=== PATIENT | female | born 1945 | race Caucasian/White ===

== ENCOUNTER 2018-10-15 06:05 | Inpatient (IN) ==
[2018-10-15] MEDS ORDERED: Metoprolol Tartrate 25 MG Tablet PO ONE (06:32)
[2018-10-15] MEDS ORDERED: Chlorhexidine Gluconate 2% 1 Pack (2 Cloths) TOPICAL ONE (06:32)
[2018-10-15] MEDS ORDERED: Dextrose 5%/NaCl 0.9% Inj 1,000 ML IV.SIG SCH (06:45)
[2018-10-15] MEDS ORDERED: ceFAZolin 2 GM IV; once IV.SIG ONE (06:45)
[2018-10-15] MEDS ORDERED: Sodium Chlor 0.9% Inj 500 ML IV.SIG SCH (07:00)
[2018-10-15] MEDS ORDERED: Sugammadex Inj 200 MG/2 ML Vial IV.PUSH ONE (07:13)
--- NOTE | 2018-10-15 10:06 | P.OP ---
- Preoperative Diagnosis (1) Diverticula of colon - Postoperative Diagnosis (1) Diverticula of colon Date of procedure: 10/15/18 Procedure: Urologic procedures performed: Cystoscopy and placement of bilateral ureteral catheters Implants: Bilateral 6 Czech ureteral catheters Anesthesia: GETA Surgeon: Akbar Mendiola MD Estimated blood loss (mL): 0 Pathology: none sent Operation and Findings: Indication for urologic procedures: Consulted intraoperatively to place bilateral ureteral catheters to aid in visualization of this patient's ureters during her colorectal procedure. Urologic procedures performed: Concurrent with the colorectal surgeon Dr. Henry, I proceeded with placement of bilateral ureteral catheters as follows : Initially cystoscopic evaluation was performed utilizing the rigid cystoscope with the 30 degree lens and the 22 Czech sheath. Both right and left ureteral orifices were in correct anatomic position draining clear yellow urine. There were no bladder mucosal lesions, calculi or diverticula formation. There were no areas suspicious for fistula formation or tumor formation. I then proceeded to pass a sensor 0.035 wire up the patient's left ureter until a small amount of resistance was met. A 6 Czech open-ended ureteral catheter was then advanced over the wire 25 cm in a cephalad direction. With the catheter in place, the guidewire was withdrawn and reintroduced to a secondary side by the cystoscope. In similar fashion the contralateral side was accomplished. With both catheters in place, the wire and cystoscope were withdrawn and a 16 Czech 10 cc Pina catheter was placed. Both ureteral catheters were then anchored to the Pina and all 3 catheters placed to gravity drainage. This completes urologic surgery portion of combined procedures on this patient.
[2018-10-15] MEDS ORDERED: ceFAZolin 2 GM Premix Inj 2 GM/50 ML PIGGYBACK IV.SIG ONE (12:47)
[2018-10-15] MEDS ORDERED: Morphine Inj 30 MG/30 ML PCA.VIAL PCA PRN (13:00)
[2018-10-15] MEDS ORDERED: Naloxone Inj 0.4 MG/ML Vial IV.PUSH PRN (13:00)
[2018-10-15] MEDS ORDERED: fentaNYL Citrate Inj 100 MCG/2 ML Ampul ONE ×2 (13:28)
[2018-10-15] MEDS ORDERED: Insulin NovoLOG Aspart Correctional Sugar Inj SQ ONE (13:46)
[2018-10-15 13:51] LABS: Mean Corpuscular HGB Conc 32.7 % (32.0-36.0); Mean Corpuscular Hemoglobin 31.5 pg (27.0-34.0); Mean Corpuscular Volume 96.3 fL (80.0-100.0); Mean Platelet Volume 7.7 fL (7.0-11.0); Platelet Count 117 th/mm3 (150-450); Red Blood Count 2.07 mil/mm3 (4.00-5.30); White Blood Count 5.4 th/mm3 (4.0-11.0)
[2018-10-15 13:56] LABS: Hemoglobin 6.5 gm/dL (11.6-15.3)
[2018-10-15 13:57] LABS: Hematocrit 19.9 % (35.0-46.0)
[2018-10-15] MEDS ORDERED: Potassium Chlor 20 mEq Premix 20 MEQ/100 ML PIGGYBACK IV.SIG ONE (14:00)
[2018-10-15 14:16] LABS: Anion Gap 29 meq/L (5-15); Blood Urea Nitrogen 8 mg/dL (7-18); Carbon Dioxide 11.6 meq/L (21.0-32.0); Chloride 101 meq/L (98-107); Glomerular Filtration Rate Greater Than 89 mL/min (>89); Glucose,Random 99 mg/dL (74-106); Potassium 4.3 meq/L (3.5-5.1); Sodium 142 meq/L (136-145)
[2018-10-15 14:34] LABS: Albumin 1.3 g/dL (3.4-5.0)
[2018-10-15 14:37] LABS: Lymphocytes 4 % (9-44); Monocytes 1 % (0-8)
[2018-10-15 14:38] LABS: Platelet Morphology Normal (Normal)
[2018-10-15 14:41] LABS: Calcium-Albumin Corrected Less Than 7.2 mg/dL (8.5-10.1)
--- NOTE | 2018-10-15 14:43 | MP ---
cc: Sylvia Henry MD, Dr. DATE OF OPERATION: 10/15/2018 PREOPERATIVE DIAGNOSIS: Chronic diverticulitis. POSTOPERATIVE DIAGNOSIS: Chronic diverticulitis. PROCEDURE PERFORMED: 1. Laparoscopic/robotic, extensive lysis of adhesions. 2. Robotic low anterior resection. ANESTHESIA: General per ET tube. ESTIMATED BLOOD LOSS: 100 mL OPERATIVE INDICATIONS: The patient is a 73-year-old female who has had multiple attacks of diverticulitis over the years; 2 within the last 12 months. OPERATIVE FINDINGS: The patient had an inflamed phlegmon of the colon that was folded over and down into the pelvis. The remainder of the bowel appeared visually normal. The liver was not well visualized, but the uterus and ovaries appeared appropriate for her age. OPERATIVE COURSE: The patient was brought to the operating room, placed in the supine position. After induction of general anesthesia, the patient was placed in the lithotomy position. All bony prominences were carefully padded. The skin of the anterior abdominal wall as well as the perineal area were then prepped and draped in the usual sterile fashion. . ____ then came in and performed cystoscopy with placement of bilateral ureteral catheters; please see his operative note for details. The site was then drawn for the camera being located just to the right and above the umbilicus. A 10/12 trocar was placed at this location under direct vision using the laparoscope. CO2 insufflation was then began, and although the patient had adhesions of omentum and bowel from the anterior abdominal wall, there was nothing noted that would preclude the ____ . A site was chosen for the short 10/12 just inside the right anterior superior iliac spine. We did have to move that in slightly because of a very prominent vessel. The 10/12 trocar was placed under direct vision using the laparoscope. A #5 assist port was placed into the right costal margin equal distance from the #1 and the camera port. The patient was hydroplaned with head down and slightly to the right and the small bowel was brought up and out of the pelvis. The adhesions of the omentum to the anterior abdominal wall on the left as well as to the descending colon were then dissected free using electrocautery. Eventually had free mobility of the omentum and this was brought up and over the transverse colon. Attention was then turned to the pelvis. The sigmoid colon was retracted down to the left and the peritoneum on the right was scored. Dissection was continued in this plane. The remaining 2 ports were placed as follows: The #2 port was placed on the umbilical line in the left anterior axillary line and the #3 port was placed 2 fingerbreadths above the umbilical line in the left midclavicular line. The previously scored peritoneum on the right was then dissected free posterior to the vessels until the left ureter was clearly identified and swept away from the specimen. At this point, the peritoneum above the vessels were opened and a window was made around the vessels; however, due to the short length of the vessels, I was not able to get a stapler across the vessels. The vessels were then dissected out with electrocautery, doubly clamped proximally, singly clamped distally with Hem-o-Sarita clamps and divided. The descending colon mesentery was then carefully dissected free from the posterior peritoneum. Dissection continued down posteriorly on the rectum, down to the level of the distal rectum. Dissection then continued up around the right and left side, freeing up the remaining portion of the distal sigmoid and proximal rectum. Unfortunately, it was necessary to go below the cul-de-sac in order to get better straightening of the colon. Eventually we had full mobility of the descending colon and sigmoid colon and rectum. A sponge stick was placed into the rectum and the 29 EEA stapler was also advanced into the rectum to verify the site. The mesentery at this level was divided using a combination of electrocautery and blunt dissection and a white load of the [place] stapler was placed across the bowel, fired and removed. The stapler was again advanced to the rectal stump. There was noted to be a small dog ear, but this was cleared off so that it should come out through the middle of the staple line. Staple was fired and removed. The descending colon was then dissected free up to the level, but not around the splenic flexure and the posterior peritoneum was freed as well making sure we had adequate length to come down to the rectal stump without any unnecessary tension. All dissection beds were examined and hemostasis was obtained with electrocautery and the robot was undocked. A 12 cm transverse incision was made just above the symphysis pubis using electrocautery. Dissection was carried down to the fascia of the abdominal wall, which was divided the length of the skin incision. The medial fibers of the rectus abdominis muscle were then split and the posterior fascia was then incised to the length of the anterior fascia. A wound protector was then placed in the proximal staple end of the bowel was grasped, pulled up and out through the wound protector. A site was then confirmed for the reanastomosis and the mesentery at this level was serially divided and ligated using 0-Vicryl ties. A pursestring stapling device was placed across the bowel proximally and the distal bowel was occluded with a Fabian clamp. The bowel was amputated, was taken to a back table where it was later opened and diverticulitis only was confirmed. The anvil from the 29 EEA stapler was placed down the cut end of the bowel and the previously placed pursestring suture was then secured. This was then reduced back into the peritoneal cavity. The stapler was advanced just through the anal stump to the rectal stump without difficulty. The small dog ear was pulled up around the spike as it was advanced just above the staple line. The spike was then into the anvil and being careful that the bowel did not twist, the spike was closed, held for 30 seconds and removed, thus creating the enteroenterostomy. Both anastomotic rings appeared to be complete and the anastomosis was pink and healthy and lay in a nice orientation without tension. A small amount warm saline was placed in the pelvis and the proximal bowel was occluded with digital pressure while air was insufflated into the rectum until gentle tension was noted and the anastomosis with no sign of any leakage noted. The dissection beds dusted with powdered Surgicel to decrease any risk of oozing. The posterior fascia of the anterior abdominal wall was closed in running fashion using #1 PDS. The anterior fascia was closed in a running subcuticular fashion using 0-Vicryl. Steri-Strips were then applied over the abdominal incision and sterile dressings were then applied. All sponge, needle and instrument counts were correct and the patient was returned to the Postanesthesia Care Unit in stable condition. MD LAKIA Gotti/lazara , 01:08 PM , 01:24 PM
[2018-10-15] MEDS: Dextrose 5%/NaCl 0.9% Inj 1,000 ML IV.CONT SCH ×2 (14:44→22:45)
[2018-10-15 14:54] LABS: Hematocrit 38.5 % (35.0-46.0); Hemoglobin 13.1 gm/dL (11.6-15.3)
[2018-10-15] MEDS: Potassium Chlor 20 mEq Premix 20 MEQ/100 ML PIGGYBACK IV.SIG SCH ×2 (14:58→16:03)
[2018-10-15] MEDS: ceFAZolin Inj 1 GM in Sodium Chlor 0.9% Inj 100 ML IV.SIG SCH ×2 (21:36→22:20)
[2018-10-15] MEDS: Famotidine PF Inj 20 MG/2 ML Vial IV.PUSH SCH (21:37)
[2018-10-15] MEDS: Heparin - SQ 10,000 UNITS/ML Vial SQ SCH (21:37)
[2018-10-16] MEDS: Ketorolac Inj 30 MG/ML (IVP) Vial IV.PUSH PRN ×3 (04:33→23:05)
[2018-10-16 06:25] LABS: Baso % (Auto) 0.2 % (0.0-2.0); Hematocrit 38.8 % (35.0-46.0); Lymph # (Auto) 0.7 th/mm3 (1.0-4.8); Mean Corpuscular HGB Conc 33.4 % (32.0-36.0); Mean Corpuscular Hemoglobin 31.2 pg (27.0-34.0); Mean Corpuscular Volume 93.4 fL (80.0-100.0); Mean Platelet Volume 8.1 fL (7.0-11.0); Mono # (Auto) 0.5 th/mm3 (0.0-0.9); Neut # (Auto) 10.2 th/mm3 (1.8-7.7); Neut % (Auto) 89.8 % (16.0-70.0); Platelet Count 232 th/mm3 (150-450); Red Blood Count 4.15 mil/mm3 (4.00-5.30); Red Cell Distribution Width 13.4 % (11.6-17.2); White Blood Count 11.3 th/mm3 (4.0-11.0)
[2018-10-16 07:10] LABS: Calcium 8.1 mg/dL (8.5-10.1); Carbon Dioxide 24.2 meq/L (21.0-32.0); Potassium 3.9 meq/L (3.5-5.1)
[2018-10-16] MEDS: Famotidine PF Inj 20 MG/2 ML Vial IV.PUSH SCH ×2 (08:01→23:07)
[2018-10-16] MEDS: Heparin - SQ 10,000 UNITS/ML Vial SQ SCH ×2 (08:01→23:07)
--- NOTE | 2018-10-16 08:40 | P.PNCS ---
Subjective Colorectal Surgery Post Op Day #: 1 Interval history: afebrile, VSS UO good stent dc'd Objective Result Diagrams: 10/16/18 05:37 10/16/18 05:37 Objective Remarks: PE alert Abd - soft, min tympany, wounds dry Assessment and Plan - Plan Imp: stable post-op OOB decr IVF OOB tx to floor
[2018-10-16] MEDS: ceFAZolin Inj 1 GM in Sodium Chlor 0.9% Inj 100 ML IV.SIG SCH (12:00)
[2018-10-16] MEDS: Dextrose 5%/NaCl 0.9% Inj 1,000 ML IV.CONT SCH ×2 (12:03→12:30)
[2018-10-17] MEDS: Heparin - SQ 10,000 UNITS/ML Vial SQ SCH ×2 (10:00→20:38)
[2018-10-17] MEDS: Famotidine PF Inj 20 MG/2 ML Vial IV.PUSH SCH ×2 (10:00→20:37)
[2018-10-17 14:30] LABS: Baso # (Auto) 0.1 th/mm3 (0.0-0.2); Baso % (Auto) 0.8 % (0.0-2.0); Eos # (Auto) 0.1 th/mm3 (0.0-0.4); Eos % (Auto) 1.5 % (0.0-4.0); Hematocrit 37.6 % (35.0-46.0); Hemoglobin 12.6 gm/dL (11.6-15.3); Lymph # (Auto) 2.4 th/mm3 (1.0-4.8); Lymph % (Auto) 24.6 % (9.0-44.0); Mean Corpuscular HGB Conc 33.6 % (32.0-36.0); Mean Corpuscular Volume 95.2 fL (80.0-100.0); Mean Platelet Volume 8.1 fL (7.0-11.0); Mono # (Auto) 0.6 th/mm3 (0.0-0.9); Mono % (Auto) 5.9 % (0.0-8.0); Neut # (Auto) 6.6 th/mm3 (1.8-7.7); Neut % (Auto) 67.2 % (16.0-70.0); Platelet Count 198 th/mm3 (150-450); Red Blood Count 3.95 mil/mm3 (4.00-5.30); Red Cell Distribution Width 13.8 % (11.6-17.2); White Blood Count 9.8 th/mm3 (4.0-11.0)
[2018-10-17 14:47] LABS: Calcium 8.2 mg/dL (8.5-10.1); Carbon Dioxide 25.6 meq/L (21.0-32.0); Potassium 3.6 meq/L (3.5-5.1)
[2018-10-17] MEDS: Dextrose 5%/NaCl 0.9% Inj 1,000 ML IV.CONT SCH ×2 (16:00→18:34)
--- NOTE | 2018-10-17 19:16 | P.PNCS ---
Subjective Colorectal Surgery Post Op Day #: 2 Interval history: afebrile, VSS UO good peter PO +BM Objective Result Diagrams: 10/17/18 13:56 10/17/18 13:56 Objective Remarks: PE alert Abd - soft, min tympany, wounds dry taylor full Assessment and Plan - Plan Imp: OOB decr IVF OOB dc plans
[2018-10-17] MEDS: Ketorolac Inj 30 MG/ML (IVP) Vial IV.PUSH PRN (20:54)
[2018-10-18] MEDS: Ketorolac Inj 30 MG/ML (IVP) Vial IV.PUSH PRN ×2 (08:20→17:41)
[2018-10-18] MEDS: Heparin - SQ 10,000 UNITS/ML Vial SQ SCH ×2 (08:21→21:11)
[2018-10-18] MEDS: Famotidine PF Inj 20 MG/2 ML Vial IV.PUSH SCH ×2 (08:21→21:11)
[2018-10-18] MEDS: Dextrose 5%/NaCl 0.9% Inj 1,000 ML IV.CONT SCH (08:22)
[2018-10-18] MEDS: traMADol/Acetaminophen 37.5/325 MG Tablet PO PRN (10:48)
--- NOTE | 2018-10-18 13:20 | P.PNCS ---
Subjective Colorectal Surgery Post Op Day #: 3 Interval history: s/p robotic sigmoid colectomy, VALERY no further nausea, weak Objective Result Diagrams: 10/17/18 13:56 10/17/18 13:56 Objective Remarks: Abdomen soft, nondistended, tender Wounds clean Assessment and Plan - Plan Doing well Home in am
[2018-10-19] MEDS: traMADol/Acetaminophen 37.5/325 MG Tablet PO PRN (02:26)
[2018-10-19 04:10] VITALS: TEMP 97.8
[2018-10-19] MEDS: Famotidine PF Inj 20 MG/2 ML Vial IV.PUSH SCH (08:22)
[2018-10-19] MEDS: Heparin - SQ 10,000 UNITS/ML Vial SQ SCH (08:22)
[2018-10-19 08:51] VITALS: BP 169/81; RESP 16; O2SAT 97
[2018-10-19 10:23] VITALS: PULSE 63
== END 2018-10-19 11:39 | disposition home or self-care (01) | DRG 334 ==
LOC: HSDI 06:05 → HCPC 16:20 → HCIS 10-18 10:58
PROVIDERS: ADMIT Colon & Rectal Surgery; ATTEND Colon & Rectal Surgery
DX: K57.32 Diverticulitis of large intestine without perforation or abscess without bleeding
CPT/HCPCS: 80048; 82040; 82948; 82962; 85014; 85018; 85025; 86850; 86900; 86901; 88307; C1769; J0131; J0690; J1644; J1815; J1885; J1940; J2270; J2405; J3010; J7042; J7120; J8501